=== PATIENT | female | born 2000 | race Caucasian/White ===

== ENCOUNTER 2020-10-18 09:52 | Emergency (ER) | payer MEDICAID ==
[~2020-10-18] VITALS: Ht 152.4 cm; Wt 71.5 kg
[2020-10-18] MEDS ORDERED: LORazepam 2 mg/ml vial IM ONE (11:05)
[2020-10-18 11:37] LABS: BASOPHILS % (AUTO) 0.3 % (0-1); EOSINOPHILS % (AUTO) 0 % (0-6); HEMATOCRIT 44.6 % (35.0-45.0); HEMOGLOBIN 15.2 g/dl (12.0-16.0); LYMPHOCYTES % (AUTO) 12.3 % (21-51); MEAN CORPUSCULAR HEMOGLOBIN 31.2 PG (27.0-31.0); MEAN CORPUSCULAR HGB CONC 34.1 g/dL (33.0-36.5); MEAN CORPUSCULAR VOLUME 91.5 FL (78-98); MEAN PLATELET VOLUME 6.9 FL (7.4-10.4); MONOCYTES # (AUTO) 0.4 X10'3 (0-0.9); MONOCYTES % (AUTO) 4.9 % (2-12); NEUTROPHILS # (AUTO) 6.6 X10'3 (1.8-7.7); NEUTROPHILS % (AUTO) 82.5 % (42-75); PLATELET COUNT 304 X10'3 (140-440); RED BLOOD COUNT 4.87 X10'6 (4.20-5.60); RED CELL DISTRIBUTION WIDTH 12.5 % (11.5-14.5); WHITE BLOOD COUNT 8.1 X10'3 (4.5-11.0)
[2020-10-18 11:43] LABS: CLARITY,URINE CLOUDY (Clear); COLOR,URINE YELLOW (Yellow); GLUCOSE, URINE NEGATIVE (Neg); KETONES,URINE >=80 mg/dl (Neg); LEUKOCYTE ESTERASE ,URINE TRACE (Neg); NITRITES, URINE NEGATIVE (Neg); OCCULT BLOOD,URINE NEGATIVE (Neg); PROTEIN,URINE 30 mg/dl (Neg); URINE HCG NEGATIVE (NEG)
[2020-10-18 11:49] LABS: URINE AMPHETAMINE SCREEN NEGATIVE (Neg); URINE BARBITUATE SCREEN NEGATIVE (Neg); URINE BENZODIAZEPINES SCREEN POSITIVE (Neg); URINE CANNABINOID SCREEN POSITIVE (Neg); URINE COCAINE SCREEN NEGATIVE (Neg); URINE METHADONE SCREEN NEGATIVE (Neg); URINE OPIATE SCREEN NEGATIVE (Neg); URINE PHENCYCLIDINE SCREEN NEGATIVE (Neg)
[2020-10-18 11:51] LABS: ALANINE AMINOTRANSFERASE 29 U/L (12-78); ALBUMIN 4.8 G/DL (3.4-5.0); ALBUMIN/GLOBULIN RATIO 1.3 (1.1-1.5); ALKALINE PHOSPHATASE 63 IU/L (46-116); ANION GAP 13 (8-16); ASPARTATE AMINO TRANSFERASE 25 U/L (10-37); BILIRUBIN,TOTAL 0.6 MG/DL (0.1-1.0); BLOOD UREA NITROGEN 8 MG/DL (7-18); BUN/CREATININE RATIO 11.4 (6.6-38.0); CALCIUM 9.6 MG/DL (8.5-10.1); CHLORIDE 100 MMOL/L (99-107); GLUCOSE 116 MG/DL (70-104); POTASSIUM 3.2 MMOL/L (3.5-5.1); SODIUM 138 MMOL/L (135-145); TOTAL CARBON DIOXIDE 24.7 MMOL/L (24-32); TOTAL PROTEIN 8.5 G/DL (6.4-8.2); eGFR > 90 ML/MIN
[2020-10-18 11:51] LABS: UA COLLECTION TYPE CLN CATCH MIDSTREAM
[2020-10-18 11:52] LABS: BACTERIA,URINE 2+ /HPF (Neg); MUCUS STRANDS MANY /LPF (Neg); RBC,URINE 0-2 /HPF (0-2); SQUAMOUS EPITHELIAL CELL,UR MANY /LPF (FEW); WBC,URINE 0-4 /HPF (0-4)
[2020-10-18 12:01] LABS: ACETAMINOPHEN < 2.0 UG/ML (10-30); ETHANOL < 0.010 GM/DL (0.0-0.010)
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
--- NOTE | 2020-10-18 13:49 | NUR ---
FAXED [facility]
--- NOTE | 2020-10-18 14:18 | NUR ---
breaking primary rn, pt is up to bathroom, will continue to monitor
--- NOTE | 2020-10-18 15:22 | NUR ---
pt is sitting in her bed reading. pt is apolegetic for "stressing us out." pt has no needs at this time
--- NOTE | 2020-10-18 16:54 | NUR ---
pt is resting in bed quietly. pt has been evaluated by [facility] and waiting to see if a [facility] hold will be placed.
[2020-10-18] MEDS ORDERED: SERT25TA PO (19:19)
[2020-10-18] MEDS ORDERED: OMEP20TA23 PO (19:19)
--- NOTE | 2020-10-18 19:25 | NUR ---
One to one with the patient who was fearful and tearful. She was asked if she was hearing voices and she replied, "I would say its more of delusions making me thing people are out to get me" She asked if she was asked to wearing greens scrubs because she was being charged with something and she was reassured that was not the case. She tearfully stated, "Everybody is mad at me. I feel like I deserve to be here until I " When asked why she felt that way she stated that she had not paid off her debit card off on time. She stated that she feels very sad and disappointed. She reports suicidal thoughts "pop in and out" of her mind. She is disorganized and she had difficulty completing making a telephone call without help.
--- NOTE | 2020-10-18 20:31 | NUR ---
The patient is resting on her bed.
--- NOTE | 2020-10-18 22:21 | NUR ---
The patient appears to be sleeping
--- NOTE | 2020-10-18 23:40 | NUR ---
The patient awakened and stated she could not stop shaking her legs but a short time later with distraction her legs stopped shaking. She quickly became increasingly distressed and agitated. She talked nonstop very rapidly for approximately 30 minutes. Her speech was very disorganized, paranoid, delusional and had a flight of ideas. She made many references to the oseguera viris and Trump and that she was not the cause of oseguera viris. She also makes many statements about being "dehumanized" She is refusing medications. She has poor insight.
--- NOTE | 2020-10-19 00:06 | NUR ---
The patient states that she is here because she is withdrawing from all of the medications that she was falsely placed on.
--- NOTE | 2020-10-19 01:01 | NUR ---
The patient remains awake and periodically makes delusional statements. She was again offered medications but she is refusing. She is accepting redirection.
--- NOTE | 2020-10-19 02:50 | NUR ---
The patient appears to be sleeping
--- NOTE | 2020-10-19 04:42 | NUR ---
The patient appears to be asleep
[2020-10-19] MEDS ORDERED: acetaminophen 325mg tablet PO PRN (07:10)
[2020-10-19] MEDS ORDERED: potassium Cl 20 mEq SR tablet PO STA (07:10)
[2020-10-19] MEDS: pantoprazole 40mg Tablet.DR PO SCH (07:20)
[2020-10-19] MEDS: sertraline 25mg tablet PO SCH (07:20)
[2020-10-19] MEDS: LORazepam 1 MG tablet PO PRN ×2 (07:20→15:12)
--- NOTE | 2020-10-19 12:57 | NUR ---
Patient eating lunch tray with no assistance.
--- NOTE | 2020-10-19 14:25 | NUR ---
SPOKE TO DR GILMAN REGARDING REFERRAL TO [facility]. SPOKE WITH [facility] EXT [id number]
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
[2020-10-19] MEDS ORDERED: olanzapine 10mg tablet PO SCH (15:00)
[2020-10-19] MEDS: OLANZAPINE 5 MG TABLET PO SCH (15:12)
--- NOTE | 2020-10-19 18:25 | NUR ---
Patient appears to be sleeping soundly after receiving medications earlier in the evening.
--- NOTE | 2020-10-19 21:11 | NUR ---
Pt awake C/O stomach ache and leg pain but refusing tylenol. No S/S of distress, continue to monitor.
--- NOTE | 2020-10-19 22:03 | NUR ---
Pt sits ups in bed and makes random requests...HIV testing, flu shot, "scan" of her stomach, no distress noted.
--- NOTE | 2020-10-20 00:06 | NUR ---
Pt sleeping comfortably, no distress noted, will continue to monitor.
--- NOTE | 2020-10-20 02:05 | NUR ---
pt sleeping comfortably, no distress, will continue to monitor.
--- NOTE | 2020-10-20 04:32 | NUR ---
Pt sleeping comfortable, no s/s of distress, will monitor pt.
--- NOTE | 2020-10-20 05:42 | NUR ---
Pt continues to c/o upper abd pain, MD aware of increased HR, increased temp vitals from this am. Will continue to monitor.
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
--- NOTE | 2020-10-20 07:39 | NUR ---
Morning labs drawn by this RN. Pt tolerated well and denies any needs at this time.
[2020-10-20 07:56] LABS: ALBUMIN 3.9 G/DL (3.4-5.0); ANION GAP 8 (8-16); BLOOD UREA NITROGEN 11 MG/DL (7-18); BUN/CREATININE RATIO 16.7 (6.6-38.0); CHLORIDE 104 MMOL/L (99-107); CREATININE 0.66 MG/DL (0.40-0.90); GLUCOSE 78 MG/DL (70-104); POTASSIUM 3.9 MMOL/L (3.5-5.1); SODIUM 142 MMOL/L (135-145); TOTAL CARBON DIOXIDE 29.9 MMOL/L (24-32); eGFR > 90 ML/MIN
[2020-10-20 07:57] LABS: BASOPHILS % (AUTO) 0.9 % (0-1); EOSINOPHILS % (AUTO) 0.8 % (0-6); HEMATOCRIT 43.7 % (35.0-45.0); HEMOGLOBIN 14.9 g/dl (12.0-16.0); LYMPHOCYTES # (AUTO) 1.7 X10'3 (1.1-4.8); LYMPHOCYTES % (AUTO) 35.2 % (21-51); MEAN CORPUSCULAR HEMOGLOBIN 31.4 PG (27.0-31.0); MEAN CORPUSCULAR VOLUME 92.3 FL (78-98); MEAN PLATELET VOLUME 7.1 FL (7.4-10.4); MONOCYTES # (AUTO) 0.6 X10'3 (0-0.9); MONOCYTES % (AUTO) 11.3 % (2-12); NEUTROPHILS # (AUTO) 2.6 X10'3 (1.8-7.7); NEUTROPHILS % (AUTO) 51.8 % (42-75); PLATELET COUNT 247 X10'3 (140-440); RED BLOOD COUNT 4.73 X10'6 (4.20-5.60); RED CELL DISTRIBUTION WIDTH 12.7 % (11.5-14.5)
[2020-10-20] MEDS: OLANZAPINE 5 MG TABLET PO SCH ×2 (08:14→20:10)
[2020-10-20] MEDS: pantoprazole 40mg Tablet.DR PO SCH (08:15)
[2020-10-20] MEDS: sertraline 25mg tablet PO SCH (08:15)
--- NOTE | 2020-10-20 08:44 | NUR ---
Pt has made a few trips to the restroom. Pt concerned because she isn't able to poop anymore. Let pt know that it is okay as her body may be "cleaned out" for right now.
--- NOTE | 2020-10-20 09:30 | NUR ---
Pt resting quietly in her bed with her eyes closed. Respirations unlabored. NAD
--- NOTE | 2020-10-20 10:30 | NUR ---
Pt fixated on her bodily functions. Pt on her way to the restroom stated, "I don't know why, but I am having to pee this morning." Let pt know that her urine did not show a UTI.
--- NOTE | 2020-10-20 11:35 | NUR ---
Pt resting in bed. Respirations unlabored. NAD
--- NOTE | 2020-10-20 12:53 | NUR ---
Pt sitting up in bed eating lunch. Pt denies any needs at this time.
--- NOTE | 2020-10-20 12:55 | NUR ---
Pt's foster mother is Terese and she can be reached at [phone].
--- NOTE | 2020-10-20 13:29 | NUR ---
Pt ambulated to the restroom and back to bed. Pt denies any needs at this time.
--- NOTE | 2020-10-20 14:27 | NUR ---
Pt sleeping on back in bed. Respirations unlabored. NAD
--- NOTE | 2020-10-20 15:22 | NUR ---
pt up to restroom 3 times in the last 15 minutes. States she requested an ultrasound and is having abdominal pain, throat pain, and is constipated. Requesting to be seen by a doctor. Reassured pt. that we are monitoring her medically. pt. appeared to be reassured and returned to her bed.
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
--- NOTE | 2020-10-20 16:15 | NUR ---
[facility] for the pt.
--- NOTE | 2020-10-20 16:23 | NUR ---
Leonor called from [facility]. They are holding a bed for the pt pending a negative COVID and faxed updated vital signs/labs. They will call back for a [id number] report. Also gave her [facility]'s phone number to call and arrange transport of pt.
[2020-10-20] MEDS: LORazepam 1 MG tablet PO PRN (17:08)
--- NOTE | 2020-10-20 17:19 | NUR ---
Pt agreed to take an Ativan pill to help her relax. Explained to her that her BP is high because she is not able to relax. Pt verbalized understanding.
--- NOTE | 2020-10-20 17:55 | NUR ---
Refaxed pt's vitals and lab results with negative COVID to [facility].
--- NOTE | 2020-10-20 17:57 | NUR ---
Pt sitting on side of bed eating supper.
--- NOTE | 2020-10-20 18:25 | NUR ---
[facility] called back and said that the pt has insurance from [facility], so they have to talk to that [facility] to [facility] transport and inpatient. They will revisit tomorrow.
--- NOTE | 2020-10-20 19:36 | NUR ---
Patient walks up to nursing station. She tells this expert medical writer her heart is racing. No radial pulses present. Bracheal pulses are present at 150. Patient taken to her bedside. Orthostatic vital signs are being taken.
--- NOTE | 2020-10-20 20:30 | NUR ---
Patient is labile and demanding. He received ice water at his requests along with coloring material. He is redirectable.
--- NOTE | 2020-10-20 21:08 | NUR ---
Patient is interviewed by [facility]. We are preparing him for discharge from ED so he can be admitted to [facility].
--- NOTE | 2020-10-21 00:32 | NUR ---
Patient is awake, she has ambulated to bathroom and back. Normal gait. Patient complains of problems sleeping, anxiety is present too. Dr. Ríos advised. Orders received for Benadryl 50 mg PO. This will be given along with Ativan 1 mg PO.
[2020-10-21] MEDS ORDERED: diphenhydrAMINE 25mg capsule PO ONE (00:35)
--- NOTE | 2020-10-21 01:06 | NUR ---
Patient is awake, mid fowlers position in bed. In view from nurses station.
[2020-10-21] MEDS: LORazepam 1 MG tablet PO PRN ×2 (01:28→15:58)
--- NOTE | 2020-10-21 02:37 | NUR ---
Patient is sleeping quietly on her right side, bed in low fowlers position.
--- NOTE | 2020-10-21 03:30 | NUR ---
Patient is sleeping quietly, low fowlers position in bed.
--- NOTE | 2020-10-21 04:12 | NUR ---
Patient is sleeping quietly on her right side. Bed is in mid fowlers position. No distress.
--- NOTE | 2020-10-21 05:50 | NUR ---
Patient sleeping quietly, in view from nurses station.
[2020-10-21] MEDS ORDERED: pantoprazole 40mg Tablet.DR PO ONE (06:00)
[2020-10-21] MEDS ORDERED: famotidine 20mg tablet PO ONE (06:00)
--- NOTE | 2020-10-21 06:02 | NUR ---
This patient had a rapid pulse rate and was sweating when awoken for morning vital signs. Patient was reported to be shivering and had the chills. Patient temp was within normal limits, it was taken oraly. This adjusto writer operator rechecked patients pulse, it was [address] Knowles was advised. Per MD recheck vitals around 0700 and report to him. This will be handed over in report to the oncoming day RN.
--- NOTE | 2020-10-21 07:00 | NUR ---
Pt remains asleep in bed. Pt peaceful without signs of distress.
--- NOTE | 2020-10-21 08:03 | NUR ---
meds due at 0600 have still not been given as pt remains asleep without complaints. Per night RN gave direction to not wake pt up to give.
[2020-10-21] MEDS: OLANZAPINE 5 MG TABLET PO SCH ×2 (08:41→20:15)
[2020-10-21] MEDS: sertraline 25mg tablet PO SCH (08:41)
[2020-10-21] MEDS: pantoprazole 40mg Tablet.DR PO SCH (08:41)
--- NOTE | 2020-10-21 09:00 | NUR ---
Pt up x 2 to the bathroom with small loose/runny stools. Encourage fluid intake. Pt compliant with medications.
--- NOTE | 2020-10-21 11:00 | NUR ---
Pt continues to make trips to the bathroom; though, she is not c/o loose bowels, but she has multiple other complaints that sometimes seem delusional with paranoia in nature. Pt currently resting in bed.
--- NOTE | 2020-10-21 13:00 | NUR ---
Pt continues to make trips to the bathroom. No complaints. Sitting in bed eating lunch.
--- NOTE | 2020-10-21 15:00 | NUR ---
Pt laying in bed, quiet, without complaints.
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
--- NOTE | 2020-10-21 15:35 | NUR ---
Pt attempted AWOL and was able to be verbally coaxed back to the unit. Pt seems triggered by male staff and refuses ativan by male nurse. Female staff called to assist. Female staff came and were unable to calm pt and pt would not take medication. [facility] female patient scheduler, now talking with pt.
--- NOTE | 2020-10-21 17:00 | NUR ---
Pt eventually took the ativan and is now reading a book peacefully.
--- NOTE | 2020-10-21 18:15 | NUR ---
Patient has been to the nurses station several times since my arrival to ask about her brother being in the ER. Pt is very tearful and unable to be calmed. Pt now wants to try to call her mom insisting that she has to know what is going on with her family because she does care about them no matter what the news says
--- NOTE | 2020-10-21 18:45 | NUR ---
Patient was unable to complete the call to her mom, continues to be tearful and upset insisting something is wrong with her brother.
--- NOTE | 2020-10-21 19:11 | NUR ---
Patient's (mom) BOB WISE and (dad) Nish Wise
--- NOTE | 2020-10-21 19:15 | NUR ---
With the help of staff patient was able to reach her mom via telephone. Once on the line with her mom pt asked "if the family was ok, and is everyone alive". Pt also overheard making statements like "oh I'm sorry about whatever you have heard on the news about me, none of it is true". Pt remained calm while on the phone to her mom and after she hung up patient appeared to have calmed down from her earlier state of tearfulness and returned back to bed without issue
--- NOTE | 2020-10-21 19:43 | NUR ---
Patient is now sitting up in her bed reading a book and appears much calmer
--- NOTE | 2020-10-21 20:20 | NUR ---
Pt is now very cooperative with staff and pleasant. When patient was given her PM medicaion she stated she was very sorry for how she had acted earlier and knew that she shouldn't have been acting like that. Pt also stated that she knows she says sorry a lot but that she feels like she can't help it and has to apologize. Pt was reassured that everything was okay. Pt now lying on her side and appears to be resting comfortably
--- NOTE | 2020-10-21 22:00 | NUR ---
Patient remains in her bed and appears to be resting comfortably. No s/s of distress noted
--- NOTE | 2020-10-21 23:17 | NUR ---
Patient remains in her bed and appears to be resting comfortably. No s/s of distress noted
--- NOTE | 2020-10-22 00:39 | NUR ---
Pt woke up and said she felt cold because she was wet from sweating. Pt's scrubs and sheets were damp. Pt was given a fresh set of scrubs to change and all bedding was changed.
--- NOTE | 2020-10-22 01:28 | NUR ---
Pt. awake, alert and constantly in and out of bed. She is speaking obsessively regarding incidences that occured earlier, apologizing for her behavior. She is also speaking in tangent, from hx. of marijuana use, medical hx. and dietary habits. Pt. redirected and currently resting in bed quietly. VS being taken by tech.
--- NOTE | 2020-10-22 02:53 | NUR ---
Pt was walking to the restroom pt stopped at RN station and began asking and expressing concern about her sister. Pt was redirected after a couple of minutes and finished ambulating to the restroom. When pt came out of the restroom pt came back to RN station and stated "she knows they were here in the hospital" then pt stated "they are hoarding my grandma away even though she is very ill". Pt then began talking about her nephew again asking if he was ok. Pt eventually returned to bed but was becoming tearful. Pt is currently sitting up in her bed glancing at a book.
--- NOTE | 2020-10-22 03:53 | NUR ---
Pt sitting up in bed with no s/s of distress noted. Pt called RN over and asked "what time am I being sent to the 5150". Informed patient that for right now she isn't being transferred just yet. Pt then asked "do you have a Crystal here she's my sister". Pt was redirected and she went back to sitting quietly on her bed
--- NOTE | 2020-10-22 04:58 | NUR ---
Pt transferred to ER room 10 via bed. No s/s of distress noted at this time
[2020-10-22] MEDS: pantoprazole 40mg Tablet.DR PO SCH (08:11)
[2020-10-22] MEDS: OLANZAPINE 5 MG TABLET PO SCH ×2 (08:11→21:13)
[2020-10-22] MEDS: sertraline 25mg tablet PO SCH (08:11)
--- NOTE | 2020-10-22 10:23 | NUR ---
PT IS VERY ANXIOUS, RAPID SPEECH, TALKING ABOUT WHY SHE CAME HERE AND SHE NEEDS HELP. REFERRS TO HER FAMILY FREQUENTLY AND ALL THEIR ISSUES/PROBLEMS AND SHE DOESNT WANT TO GO BACK THERE. NOTIFY MD AND RECEIVE ORDER FOR ATIVAN PO.
[2020-10-22] MEDS ORDERED: LORazepam 1 MG tablet PO ONE (10:25)
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
--- NOTE | 2020-10-22 13:51 | NUR ---
PT GIVEN LUNCH TRAY.
--- NOTE | 2020-10-22 14:08 | NUR ---
PT SLEEPING AND NOT EATING OFF LUNCH TRAY.
--- NOTE | 2020-10-22 14:44 | NUR ---
PT'S BIOLOGIC MOTHER CALLS FOR UPDATE.SHE HAD BROUGHT HER IN TO THE ER. THE PT HADNT BEEN SLEEPING AND WAS TALKING NONSTOP.
[2020-10-22] MEDS ORDERED: mag hydrox/Alum hydrox/simeth 30ml oral suspension PO ONE (17:45)
[2020-10-22] MEDS: LORazepam 1 MG tablet PO PRN (17:55)
--- NOTE | 2020-10-22 17:57 | NUR ---
PT IS TEARFUL, TALKING ABOUT HER DOG AND HOW SHE MISSES HIM. ADMIN ATIVAN FOR ANXIETY.
--- NOTE | 2020-10-22 17:59 | NUR ---
DR MENESES AWARE OF PT'S C/O ABD PAIN. MALOX IS ORDERED BY PT MAY NOT WANT TO TAKE IT. SHE CLAIMS SHE ALREADY TOOK IT AND IT DIDNT HELP WHICH ISNT TRUE.
--- NOTE | 2020-10-22 18:30 | NUR ---
Patient refused Maalox, only wants to see her "dog"?
--- NOTE | 2020-10-22 18:58 | NUR ---
Assumed care of patient that is on the side of her bed eating dinner. No distress noted.
--- NOTE | 2020-10-22 19:23 | NUR ---
Patient requesting toothpaste and toothbrush. "I have a bad root canal from not brushing my teeth, so I need to brush my teeth." She was provided a toothbrush and toothpaste.
[2020-10-22] MEDS ORDERED: LORazepam 2 mg/ml vial IM ONE (20:55)
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
--- NOTE | 2020-10-22 23:30 | NUR ---
The patient appears to be asleep in supine position. Breathing is unlabored. No s/s of distress.
--- NOTE | 2020-10-23 01:20 | NUR ---
The patient continues to sleep in supine position. No distress.
--- NOTE | 2020-10-23 02:48 | NUR ---
Patient appears to be sleeping on his right side. No s/s of distress noted.
--- NOTE | 2020-10-23 03:40 | NUR ---
Pt sleeping on left side, RR 16, no signs of distress. Assumed care from [employer]
--- NOTE | 2020-10-23 04:46 | NUR ---
pt resting in bed, appears to be sleeping. [id number]
--- NOTE | 2020-10-23 06:00 | NUR ---
When pt woke for vitals, notably diaphoretic and pulse [address] BP elevated[address] Hanks advised of pt condition. No orders at this time.
--- NOTE | 2020-10-23 06:35 | NUR ---
Spoke with Dr. Castillo regarding pt HR of 110-130 BPM. Pt reported she had been with diarrhea all day yesterday and intermittently for approx 1 week. Pt reports generalized upper abd discomfort, denies N/V. Pt to receive fluid per MD Castillo.
[2020-10-23] MEDS ORDERED: normal saline 1000ML IV soln IVB ONE (07:10)
[2020-10-23] MEDS: sertraline 25mg tablet PO SCH (08:10)
[2020-10-23] MEDS: pantoprazole 40mg Tablet.DR PO SCH (08:11)
[2020-10-23] MEDS: LORazepam 1 MG tablet PO PRN (08:11)
[2020-10-23] MEDS: OLANZAPINE 5 MG TABLET PO SCH ×2 (08:11→19:12)
--- NOTE | 2020-10-23 11:00 | NUR ---
PT REMAINS CALM AND COOPERATIVE AND IS CURRENTLY RESTING WITH EYES CLOSED.
--- NOTE | 2020-10-23 14:05 | NUR ---
PT HR CONTINUES TO TREND DOWN AND CURRENTLY WNL
--- NOTE | 2020-10-23 14:30 | NUR ---
Pt was up, ambulated to restroom and now back in room eating lunch tray.
--- NOTE | 2020-10-23 18:40 | NUR ---
pt is tearful,talking about her dog,mistreatingher dog, and how her mom took the dog and had it put to sleep
[2020-10-23] MEDS: normal saline 1000ml 1,000 ML IV SCH (19:30)
--- NOTE | 2020-10-23 19:30 | NUR ---
pt tearful, cooperative with medications, allover the palce with what she is upset about
--- NOTE | 2020-10-23 20:39 | NUR ---
pt supine in bed, no needs at this time
--- NOTE | 2020-10-23 21:30 | NUR ---
PT IS ASLEEP,REGULAR BREATHING PRESENT,NO NEEDS AT THIS TIME
--- NOTE | 2020-10-23 22:30 | NUR ---
PT IS ASLEEP, NO S/S OF AGITATION
--- NOTE | 2020-10-23 23:30 | NUR ---
pt is asleep, no needs at this time
--- NOTE | 2020-10-24 01:30 | NUR ---
pt is asleep, no needs at this time
[2020-10-24] MEDS: normal saline 1000ml 1,000 ML IV SCH ×2 (02:45→12:45)
--- NOTE | 2020-10-24 02:49 | NUR ---
pt is asleep, regular breathing present
--- NOTE | 2020-10-24 03:32 | NUR ---
pt is asleep. no needs at this time
--- NOTE | 2020-10-24 04:44 | NUR ---
PT IS ASLEEP, REGULAR BREATHING PRESENT, NO NEEDS AT THIS TIME
[2020-10-24 08:08] LABS: BASOPHILS # (AUTO) 0.1 X10'3 (0-0.2); EOSINOPHILS # (AUTO) 0.1 X10'3 (0-0.9); EOSINOPHILS % (AUTO) 2.9 % (0-6); HEMOGLOBIN 14.3 g/dl (12.0-16.0); LYMPHOCYTES # (AUTO) 1.9 X10'3 (1.1-4.8); LYMPHOCYTES % (AUTO) 37.3 % (21-51); MEAN CORPUSCULAR HGB CONC 33.4 g/dL (33.0-36.5); MEAN CORPUSCULAR VOLUME 92.8 FL (78-98); MEAN PLATELET VOLUME 6.9 FL (7.4-10.4); MONOCYTES # (AUTO) 0.5 X10'3 (0-0.9); MONOCYTES % (AUTO) 9.3 % (2-12); NEUTROPHILS # (AUTO) 2.5 X10'3 (1.8-7.7); NEUTROPHILS % (AUTO) 49.5 % (42-75); PLATELET COUNT 244 X10'3 (140-440); RED BLOOD COUNT 4.63 X10'6 (4.20-5.60); RED CELL DISTRIBUTION WIDTH 12.5 % (11.5-14.5); WHITE BLOOD COUNT 5.1 X10'3 (4.5-11.0)
[2020-10-24 08:22] LABS: ALANINE AMINOTRANSFERASE 19 U/L (12-78); ALBUMIN 3.8 G/DL (3.4-5.0); ALBUMIN/GLOBULIN RATIO 1.1 (1.1-1.5); ALKALINE PHOSPHATASE 49 IU/L (46-116); ANION GAP 9 (8-16); ASPARTATE AMINO TRANSFERASE 13 U/L (10-37); BILIRUBIN,TOTAL 0.4 MG/DL (0.1-1.0); BLOOD UREA NITROGEN 7 MG/DL (7-18); BUN/CREATININE RATIO 12.7 (6.6-38.0); CALCIUM 9.1 MG/DL (8.5-10.1); CHLORIDE 106 MMOL/L (99-107); CREATININE 0.55 MG/DL (0.40-0.90); GLUCOSE 91 MG/DL (70-104); POTASSIUM 3.6 MMOL/L (3.5-5.1); SODIUM 141 MMOL/L (135-145); TOTAL PROTEIN 7.2 G/DL (6.4-8.2); eGFR > 90 ML/MIN
[2020-10-24] MEDS: sertraline 25mg tablet PO SCH (08:34)
[2020-10-24] MEDS: OLANZAPINE 5 MG TABLET PO SCH ×2 (08:34→21:01)
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
[2020-10-24] MEDS: pantoprazole 40mg Tablet.DR PO SCH (08:43)
[2020-10-24] MEDS: LORazepam 1 MG tablet PO PRN ×2 (09:02→21:06)
[2020-10-24] MEDS ORDERED: metoclopramide 5 mg/ml inj IV ONE (09:40)
--- NOTE | 2020-10-24 10:07 | NUR ---
PT HAVING LOUD OUTBURST, CRYING TALKING ABOUT HER DOG. PT SINGING TO LET HER DOG HEAR HER.
[2020-10-24] MEDS ORDERED: LORazepam 2 mg/ml vial IM ONE (11:20)
[2020-10-24] MEDS ORDERED: diphenhydrAMINE 50 mg/ml inj IM ONE (11:20)
[2020-10-24] MEDS ORDERED: OLANZapine **IM** 10 mg inj. IM ONE (11:20)
--- NOTE | 2020-10-24 11:23 | NUR ---
PT PULLED OUT HER IV AND TRYING TO LEAVE ER. REDIRECTED BACK TO ROOM AND INFORMED DR. GORE. PLEASE SEE NEW ORDERS.
--- NOTE | 2020-10-24 11:41 | NUR ---
DR. GORE SAYS OK TO LEAVE IV OUT.
--- NOTE | 2020-10-24 12:14 | NUR ---
PT QUIETLY RESTING,
--- NOTE | 2020-10-24 14:50 | NUR ---
PT AWAKE EATING LUNCH WITH GOOD APPETITE.
--- NOTE | 2020-10-24 19:37 | NUR ---
Pt repeatedly approaching nursing station accusing the nurses of stating things that were not said. Pt is has been observed to be increasingly agitated with parnoia. Pt was redirected back into bed. Nurse also told pt she may be hearing voices, which pt denies.
--- NOTE | 2020-10-24 19:48 | NUR ---
Pt apologizing for being rude and also independently ambulated to bathroom. Pt was also transfered from bed 27 to bed 22 in the overflow section.
[2020-10-24] MEDS: propranolol 10mg tablet PO SCH (21:01)
[2020-10-25] MEDS ORDERED: ibuprofen tablet 400 MG TABLET PO ONE (07:50)
[2020-10-25] MEDS: OLANZAPINE 5 MG TABLET PO SCH ×2 (07:56→20:31)
[2020-10-25] MEDS: pantoprazole 40mg Tablet.DR PO SCH (07:56)
[2020-10-25] MEDS: propranolol 10mg tablet PO SCH ×3 (07:56→20:31)
[2020-10-25] MEDS: sertraline 25mg tablet PO SCH (07:57)
--- NOTE | 2020-10-25 09:20 | NUR ---
UP WALKING AROUND ON UNIT. EASILY AGITATED. USING BATHROOM FREQUENTLY AND HAVING FREQUENT VAGUE COMPLAINTS.
[2020-10-25] MEDS ORDERED: MIDAZolam 5mg/ml 2ml vial IM ONE (09:35)
--- NOTE | 2020-10-25 09:35 | NUR ---
PATIENT IS AGITATED AND ARGUING WITH STAFF. WALKED OFF UNIT AND IS IN THE BATHROOM ON THE FAST TRACK UNIT. SECURITY AND STAFF ARE PRESENT AND TALKING WITH PATIENT. DR. GILMAN NOTIFIED AND WILL PUT IN ORDER FOR MED TO HELP PATIENT CALM DOWN. PATIENT WALKED BACK TO OVERFLOW UNIT AND IS STANDING BY HER BED WITH SECURITY GUARDS X 2 PRESENT.
[2020-10-25] MEDS: LORazepam 1 MG tablet PO PRN (15:20)
--- NOTE | 2020-10-26 06:34 | NUR ---
RCVD report from Gita RN, pt moved from room 9 in main ED to room 22 in overflow by staff, no needs at this time
[2020-10-26 07:00] VITALS: BP 119/84
[2020-10-26] MEDS: OLANZAPINE 5 MG TABLET PO SCH (07:11)
[2020-10-26] MEDS: sertraline 25mg tablet PO SCH (07:11)
[2020-10-26] MEDS: pantoprazole 40mg Tablet.DR PO SCH (07:11)
[2020-10-26] MEDS: LORazepam 1 MG tablet PO PRN (07:11)
[2020-10-26] MEDS: propranolol 10mg tablet PO SCH (07:11)
--- NOTE | 2020-10-26 07:30 | NUR ---
pt was starting to get agitated, back and forth to nurses station appologizing to me, gave AM meds and PRN ativan
--- NOTE | 2020-10-26 08:31 | NUR ---
pt is asleep, regular breathing present. no needs at this time
--- NOTE | 2020-10-26 09:30 | NUR ---
PT REQUESTED COLORING BOOKS AND READING MATERIAL, SHE WAS GIVEN THEM, CALM, NO OTHER NEEDS AT THIS TIME
--- NOTE | 2020-10-26 10:30 | NUR ---
PT HAS BEEN COOPERATIVE AND CALM ALL MORNING, NO AGITATION, QUIET AND APOLOGETIC
--- NOTE | 2020-10-26 11:19 | NUR ---
PT WAS ACCEPTED AT [facility],SPOKE TO TAHIRA
--- NOTE | 2020-10-26 11:20 | NUR ---
PT SITTING ON HER BED, EATING CRACKERS, SPEAKING WITH DR LEE
--- NOTE | 2020-10-26 11:58 | NUR ---
PATIENT TO [facility] WITH TECH AND MEDICAL TRANSCRIPTION
[2020-10-26] MEDS ORDERED: PROP10TA10 PO (12:41)
[2020-10-26] MEDS ORDERED: OLAN5TAB3 PO (12:41)
== END 2020-10-26 12:01 ==
LOC: ER 09:52
DX: F23 Brief psychotic disorder (principal); R45.851 Suicidal ideations; R10.13 Epigastric pain; Z20.822 Contact with and (suspected) exposure to COVID-19; F12.90 Cannabis use, unspecified, uncomplicated; Z79.899 Other long term (current) drug therapy
CPT/HCPCS: 36415; 80048; 80053; 80305; 80320; 80329; 81001; 81025; 84443; 85025; 87426; 87635; 96361; 96372; 96374; 99285; C9803; J2060; 96360

== ENCOUNTER 2020-10-26 11:56 | Inpatient (IN) | payer MEDICAID ==
[~2020-10-26] VITALS: Ht 154.9 cm; Wt 79.1 kg
[~2020-10-26 11:56] MED LIST: OMEP20TA23 PO; SERT25TA PO
[2020-10-26] MEDS ORDERED: magnesium hydroxide 30ml (MOM) UD suspension PO PRN (12:05)
[2020-10-26] MEDS ORDERED: loperamide 2mg capsule PO PRN (12:05)
[2020-10-26] MEDS ORDERED: acetaminophen 325mg tablet PO PRN ×2 (12:05)
[2020-10-26] MEDS ORDERED: mag hydrox/Alum hydrox/simeth 30ml oral suspension PO PRN (12:05)
[2020-10-26] MEDS ORDERED: OLAN5TAB3 PO (12:41)
[2020-10-26] MEDS ORDERED: PROP10TA10 PO (12:41)
[2020-10-26 13:00] VITALS: BP 128/86
[2020-10-26] MEDS: propranolol 10mg tablet PO SCH ×2 (13:58→21:34)
--- NOTE | 2020-10-26 14:40 | NUR ---
Pt admitted to [facility] from ER overflow where she has been since 2/3 awaiting placement. Pt came to ER c/o abd pain, but once there, exhibitted paranoid/delusional behavior and was evaluated and put on a 5150 for grave disability and danger to self. Pt stated she wanted to hang herself. Currently, pt denies ever having said that or having those specific thoughts and says she was having thoughts of being better off without specific plans. Pt continues to voice bizarre and paranoid thoughts r/t her mother. Pt states she drinks 2-3 drinks of hard seltzer 2-4 x per week and that she smokes marijuana daily. Pt cooperative with assessment and apologizes to this RN for her bx in the ER on Friday.
--- NOTE | 2020-10-26 19:08 | NUR ---
Patient is ambulatory on the unit. She is angry and accusing staff of telling people that she started covid. Patient was on telephone yelling at her foster mother. This engineering writer spoke with patients foster mother. She requests no more phone calls tonight from her daughter. Per foster mother, "she is delusional and out of control. She can't come home until she is better, she believes since she voted for Trump that she is in trouble, Alvin told her through the television that he is coming to get her." This patient is yelling on the unit. She is accusatory at staff. Patient was offered an Ativan which she refused. The patient was advised by this engineering writer that she would need to calm down and rest in her room, no more yelling. Patient stormed off to her room.
[2020-10-26] MEDS: OLANZAPINE 5 MG TABLET PO SCH (19:24)
[2020-10-26] MEDS: LORazepam 1 MG tablet PO PRN (19:24)
--- NOTE | 2020-10-26 19:26 | NUR ---
Patient took PRN Ativan PO. Night time Zyprexa was also given along with Ativan 1mg PO.
[2020-10-26 20:00] VITALS: BP 135/89
[2020-10-26] MEDS: traZODone 50mg tablet PO PRN (21:35)
--- NOTE | 2020-10-27 03:45 | NUR ---
Nursing Progress Note:Constance Lewis Legal hold:5150 Client on voluntary/involuntary status for GD/DTS Report received from SHIV Oshea with use of SBAR Why are they here:Pt admitted to [facility] from ER overflow where she has been since 2/3 awaiting placement. Pt came to ER c/o abd pain, but once there, exhibitted paranoid/delusional behavior and was evaluated and put on a 5150 for grave disability and danger to self. Pt stated she wanted to hang herself. Currently, pt denies ever having said that or having those specific thoughts and says she was having thoughts of being better off without specific plans. Pt continues to voice bizarre and paranoid thoughts r/t her mother. Pt states she drinks 2-3 drinks of hard seltzer 2-4 x per week and that she smokes marijuana daily. Pt cooperative with assessment and apologizes to this RN for her bx in the ER on Friday. Assessment What has happened this shift: Patient is noted in the hallways, she is hysterical at times, she yells at her mother on the telephone, she yells at staff. Patients behavior is quite disruptive. Patient yells that we (staff) are blaming her for starting covid, patients speech is tangential at times.Patient demands to go home. Patient refuses to take medications. This selling underwriter contacted [facility] to request orders, simotaniously, one of the tech's developed some rapor with this patient and she agreed to take her zyprexa along with ativan. Within approximately 45 minutes patient was much less labile, she apologizes for her previous actions to multiple staff, she then went to her room to rest. Later in evening patients thought process is becoming linear. She is compliant with other meds, including Trazadone. S/I, H/I:Denies. A/VH: Unknown, looked to be responding to internal stimuli after shift change. Sleep: Leo retired to sleep, will tally at 0500. ADL's:WNL Group attendance:New admit, no group on general warehouse worker. Were meds taken:Leo became medication compliant. Any med None noted or observed. Mental Status Exam Appearance:Disheveled. Eye contact:Direct, glaring.. Behavior:Labile, frequent outbursts. Speech:Loud,tangential at times. Mood:Very Angry, yelling, acusatory,irritable. Affect:Irritable, labile. Thought process: Tangential, more linear after taking medications. Thought Content:Delusional. Cognition:Oriented to person and place. Insight:Poor. Judgment:Poor. Interventions PRN's used:Trazadone, Ativan. Therapeutic interventions: 1:1 assessment, establishment of rapport, maintained a safe and therapeutic environment, ensured contract for safety, therapeutic communication, active listening, provided clear and simple instructions, medication administration/education/monitoring, behavior monitoring, and maintained Q 15 minute safety checks. Restraints/seclusion/emergency medication: N/A Justification of Continued Inpatient Treatment: Pt needs medication adjustment and management in a safe and therapeutic environment until stable.
[2020-10-27] MEDS: LORazepam 1 MG tablet PO PRN (05:55)
--- NOTE | 2020-10-27 05:56 | NUR ---
Patient awoke after a loud disturbance on the unit. Patient complains of anxiety. Patient reassured that she is in a safe place. Ativen 1 mg given PO. She then agreed to return to bed and attempt to relax.
[2020-10-27] MEDS: pantoprazole 40mg Tablet.DR PO SCH (07:15)
[2020-10-27 07:16] VITALS: BP 121/81
[2020-10-27] MEDS: sertraline 25mg tablet PO SCH (08:01)
[2020-10-27] MEDS: propranolol 10mg tablet PO SCH ×3 (08:01→20:04)
[2020-10-27] MEDS: OLANZAPINE 5 MG TABLET PO SCH (08:01)
[2020-10-27 08:09] LABS: CHOL/HDL RATIO 3.6 (0.00-4.99); CHOLESTEROL 169 MG/DL (0-200); HDL CHOLESTEROL 47 MG/DL (35-60); LDL CHOLESTEROL 104 MG/DL (50-100); TRIGLYCERIDES 77 MG/DL (20-135)
[2020-10-27 08:11] LABS: HEMOGLOBIN A1C 5.2 % (4.5-6.2)
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
[2020-10-27] MEDS ORDERED: ziprasidone 20mg capsule PO PRN (14:20)
[2020-10-27 20:00] VITALS: BP 133/85
[2020-10-27] MEDS: traZODone 50mg tablet PO PRN (20:04)
[2020-10-27] MEDS: ziprasidone 20mg capsule PO SCH (20:05)
--- NOTE | 2020-10-27 23:32 | NUR ---
Nursing Progress Note Legal hold: 5150 Client on involuntary status for GD/DTS Report received from SHIV Oshea with use of SBAR Why are they here: Pt admitted to [facility] from ER overflow where she has been since 2/3 awaiting placement. Pt came to ER c/o abd pain, but once there, exhibitted paranoid/delusional behavior and was evaluated and put on a 5150 for grave disability and danger to self. Pt stated she wanted to hang herself. Currently, pt denies ever having said that or having those specific thoughts and says she was having thoughts of being better off without specific plans. Pt continues to voice bizarre and paranoid thoughts r/t her mother. Pt states she drinks 2-3 drinks of hard seltzer 2-4 x per week and that she smokes marijuana daily. Pt cooperative with assessment and apologizes to this RN for her bx in the ER on Friday. Assessment What has happened this shift: Patient primarily isolates to her room. Patient ate meals and was medication compliant. Patient apologizes to this comic writer for her previous nights outbursts. The patient presents as linear this shift. She denies S/I or H/I, she denies hallucinations. Patient speaks of wanting to discharge home and live with her biological mother. The patient states she and her foster mother just argue too much. The patient is medication compliant. No outbursts noted this shift. S/I, H/I: Denies. A/VH: Pt denies. Sleep: Sleeping well, will tally at 0500 hours. ADL's: Independent. Group attendance: No group on night shifts. Were Meds taken: Compliant with medications. Any med side effects: None observed or reported. Mental Status Exam Appearance: Clean, dressed in green scrubs with a white mask on. Eye contact: Direct. Behavior: Cooperative. Speech: Quiet, normal rhythm and tone. Mood: Depressed. Affect: Flat. Thought process: Tangential at times, sometimes linear. Thought Content: Paranoid, minimizes. Cognition: A/O x4 Insight: Poor. Judgment: Poor. Interventions PRN's used: Trazadone. Therapeutic interventions: 1:1 assessment, ensured contract for safety, provided therapeutic communication with active listening, medication administration/education/monitoring, behavior monitoring, and maintained Q 15 minute safety checks. Restraints/seclusion/emergency medication: N/A Justification of Continued Inpatient Treatment: Pt needs medication adjustment and management in a safe and therapeutic environment until stable.
[2020-10-28 07:23] VITALS: BP 132/86
[2020-10-28] MEDS: propranolol 10mg tablet PO SCH ×3 (07:36→20:06)
[2020-10-28] MEDS: ziprasidone 20mg capsule PO SCH ×2 (07:36→20:06)
[2020-10-28] MEDS: pantoprazole 40mg Tablet.DR PO SCH (07:36)
[2020-10-28] MEDS: sertraline 25mg tablet PO SCH (07:36)
--- NOTE | 2020-10-28 14:47 | NUR ---
Nursing Progress Note Legal hold: 5150 Client on involuntary status for GD/DTS Report received from Gissel Padilla RN with use of SBAR Why are they here: Pt admitted to [facility] from ER overflow where she has been since 2/3 awaiting placement. Pt came to ER c/o abd pain, but once there, exhibitted paranoid/delusional behavior and was evaluated and put on a 5150 for grave disability and danger to self. Pt stated she wanted to hang herself. Currently, pt denies ever having said that or having those specific thoughts and says she was having thoughts of being better off without specific plans. Pt continues to voice bizarre and paranoid thoughts r/t her mother. Pt states she drinks 2-3 drinks of hard seltzer 2-4 x per week and that she smokes marijuana daily. Pt cooperative with assessment and apologizes to this RN for her bx in the ER on Friday. Assessment What has happened this shift: Again, during AM assessment, pt apologized for behavior when she was in the ER two nights ago. She further reiterated the same story sharing how she called her biological mother a "fraud," and "I should have never said that, because she is not a fraud." Twice pt came to this nurse with her belongings from her room and asked, "what time am I leaving?" She has been present on the unit most of this shift. She is on her second day of starting Geodon. No S/E noted or reported. She is medication compliant and contracted for safety. S/I, H/I: Denies. A/VH: Pt heard talking loudly in her room while alone Sleep: Up during the day ADL's: Independent; showered in AM Group attendance: No AM group Were Meds taken: Compliant with medications Any med side effects: None noted or reported Mental Status Exam Appearance: Clean, dressed in personal clothing Eye contact: Direct Behavior: Cooperative Speech: Rapid, audible Mood: Apologetic; "sorry for my behavior the other night." Affect: Appropriate Thought process: Linear Thought Content: Discharging home to her biological mother's house Cognition: A/O x4 Insight: Poor. Judgment: Poor. Interventions PRN's used: N/A Therapeutic interventions: 1:1 assessment, ensured contract for safety, provided therapeutic communication with active listening, medication administration/education/monitoring, behavior monitoring, and maintained Q 15 minute safety checks. Restraints/seclusion/emergency medication: N/A Justification of Continued Inpatient Treatment: Pt needs medication adjustment and management in a safe and therapeutic environment until stable.
[2020-10-28 20:00] VITALS: BP 128/74
[2020-10-28] MEDS: LORazepam 1 MG tablet PO PRN (20:06)
[2020-10-28] MEDS: traZODone 50mg tablet PO PRN (20:06)
--- NOTE | 2020-10-29 00:31 | NUR ---
Nursing Progress Note Legal hold: 5150 Client on involuntary status for GD/DTS Report received from SHIV Oshea with use of SBAR Why are they here: Pt admitted to [facility] from ER overflow where she has been since 2/3 awaiting placement. Pt came to ER c/o abd pain, but once there, exhibitted paranoid/delusional behavior and was evaluated and put on a 5150 for grave disability and danger to self. Pt stated she wanted to hang herself. Currently, pt denies ever having said that or having those specific thoughts and says she was having thoughts of being better off without specific plans. Pt continues to voice bizarre and paranoid thoughts r/t her mother. Pt states she drinks 2-3 drinks of hard seltzer 2-4 x per week and that she smokes marijuana daily. Pt cooperative with assessment and apologizes to this RN for her bx in the ER on Friday. Assessment What has happened this shift: Patient is noted socializing with peers on a limited basis. She rests quietly in her room. Patient is quiet, she remains quiet and apologetic over being loud and irrational a couple of nights ago. The patient is focused on discharge. S/I, H/I: Denies. A/VH: Pt denies. Sleep: Sleeping well, will tally at 0500 hours. ADL's: Independent. Group attendance: No group on night shifts. Were Meds taken: Compliant with medications. Any med side effects: None observed or reported. Mental Status Exam Appearance: Clean, dressed in green scrubs with a white mask on. Eye contact: Direct. Behavior: Cooperative. Speech: Quiet, normal rhythm and tone. Mood: Depressed. Affect: Flat. Thought process: Tangential at times, sometimes linear. Thought Content: Paranoid, minimizes. Cognition: A/O x4 Insight: Poor. Judgment: Poor. Interventions PRN's used: Trazadone. Therapeutic interventions: 1:1 assessment, ensured contract for safety, provided therapeutic communication with active listening, medication administration/education/monitoring, behavior monitoring, and maintained Q 15 minute safety checks. Restraints/seclusion/emergency medication: N/A Justification of Continued Inpatient Treatment: Pt needs medication adjustment and management in a safe and therapeutic environment until stable.
[2020-10-29] MEDS: propranolol 10mg tablet PO SCH ×2 (07:27→13:11)
[2020-10-29] MEDS: ziprasidone 20mg capsule PO SCH (07:27)
[2020-10-29] MEDS: pantoprazole 40mg Tablet.DR PO SCH (07:27)
[2020-10-29] MEDS: sertraline 25mg tablet PO SCH (07:27)
[2020-10-29 08:00] VITALS: BP 113/77
[2020-10-29] MEDS ORDERED: LORA-268 PO (13:21)
[2020-10-29] MEDS ORDERED: SERT25TA PO (13:21)
[2020-10-29] MEDS ORDERED: PANT40TA54 PO (13:21)
[2020-10-29] MEDS ORDERED: ZIPR40CA14 PO (13:21)
[2020-10-29] MEDS ORDERED: TRAZ-251 PO (13:21)
[2020-10-29] MEDS ORDERED: PROP10TA10 PO (13:21)
--- NOTE | 2020-10-29 14:08 | NUR ---
Discharge Note: Pt discharged to her home with her biological mother. Pt denies thoughts to harm herself and commits to stay in her mother's home and continue with her medications. Pt plans to follow up with [facility]. Pt declines smoking education and smoking cessation resources. All personal belongings inventoried by DHAVAL Avila and returned with pharmacy stored medications upon her discharge.
== END 2020-10-29 14:09 | disposition home or self-care (01) | DRG 751 ==
LOC: ADULT MH 12:31
PROVIDERS: ADMIT Psychiatry & Neurology Psychiatry; ATTEND Psychiatry & Neurology Psychiatry
DX: F29 Unspecified psychosis not due to a substance or known physiological condition (principal); F12.10 Cannabis abuse, uncomplicated; F43.10 Post-traumatic stress disorder, unspecified; R00.0 Tachycardia, unspecified; K21.9 Gastro-esophageal reflux disease without esophagitis; R45.851 Suicidal ideations; F32.9 Major depressive disorder, single episode, unspecified; Z79.899 Other long term (current) drug therapy; Z81.8 Family history of other mental and behavioral disorders; Z88.2 Allergy status to sulfonamides; Z91.410 Personal history of adult physical and sexual abuse; Z88.7 Allergy status to serum and vaccine
CPT/HCPCS: 36415; 80061; 83036; 87081

== ENCOUNTER 2020-11-28 21:02 | Emergency (ER) | payer MEDICAID ==
[~2020-11-28] VITALS: Ht 157.5 cm; Wt 70.5 kg
[~2020-11-28 21:02] MED LIST changes: +LORA-268 PO; -OMEP20TA23 PO; +PANT40TA54 PO; +PROP10TA10 PO; +TRAZ-251 PO; +ZIPR40CA14 PO
[2020-11-28] MEDS ORDERED: LORazepam 2 mg/ml vial IV ONE (21:15)
[2020-11-28 21:42] LABS: BASOPHILS # (AUTO) 0.1 X10'3 (0-0.2); BASOPHILS % (AUTO) 0.7 % (0-1); EOSINOPHILS # (AUTO) 0.1 X10'3 (0-0.9); EOSINOPHILS % (AUTO) 1.1 % (0-6); HEMATOCRIT 40.3 % (35.0-45.0); HEMOGLOBIN 13.9 g/dl (12.0-16.0); LYMPHOCYTES # (AUTO) 2.5 X10'3 (1.1-4.8); LYMPHOCYTES % (AUTO) 33.6 % (21-51); MEAN CORPUSCULAR HEMOGLOBIN 31.5 PG (27.0-31.0); MEAN CORPUSCULAR HGB CONC 34.4 g/dL (33.0-36.5); MEAN CORPUSCULAR VOLUME 91.5 FL (78-98); MEAN PLATELET VOLUME 6.8 FL (7.4-10.4); MONOCYTES # (AUTO) 0.6 X10'3 (0-0.9); MONOCYTES % (AUTO) 8.1 % (2-12); NEUTROPHILS # (AUTO) 4.3 X10'3 (1.8-7.7); NEUTROPHILS % (AUTO) 56.5 % (42-75); PLATELET COUNT 290 X10'3 (140-440); RED CELL DISTRIBUTION WIDTH 12.7 % (11.5-14.5); WHITE BLOOD COUNT 7.6 X10'3 (4.5-11.0)
[2020-11-28 21:50] LABS: ALANINE AMINOTRANSFERASE 127 U/L (12-78); ALBUMIN 3.9 G/DL (3.4-5.0); ALBUMIN/GLOBULIN RATIO 1.1 (1.1-1.5); ALKALINE PHOSPHATASE 63 IU/L (46-116); ANION GAP 10 (8-16); ASPARTATE AMINO TRANSFERASE 24 U/L (10-37); BILIRUBIN,TOTAL 0.6 MG/DL (0.1-1.0); BLOOD UREA NITROGEN 13 MG/DL (7-18); BUN/CREATININE RATIO 18.8 (6.6-38.0); CALCIUM 9.2 MG/DL (8.5-10.1); CHLORIDE 103 MMOL/L (99-107); CREATININE 0.69 MG/DL (0.40-0.90); GLUCOSE 106 MG/DL (70-104); POTASSIUM 3.5 MMOL/L (3.5-5.1); SODIUM 140 MMOL/L (135-145); TOTAL CARBON DIOXIDE 27.3 MMOL/L (24-32); TOTAL PROTEIN 7.4 G/DL (6.4-8.2); eGFR > 90 ML/MIN
--- NOTE | 2020-11-28 21:50 | NUR ---
pt states she does not want to take PO ativan. informed pt that per edmd jaylan order, pt will either have the med PO or given IM. pt then agreed to take the medication. is hostile and agitated affect with staff. makes random bizarre statements and flight of ideas/tangential thinking process.
--- NOTE | 2020-11-28 21:52 | NUR ---
per edmd jaylan, may give pt ativan 1mg po instead of iv/im route that was ordered. pt agrees to this plan.
[2020-11-28 21:55] LABS: URINE HCG NEGATIVE (NEG)
[2020-11-28] MEDS ORDERED: LORazepam 1 MG tablet PO ONE (21:55)
[2020-11-28 21:58] LABS: ETHANOL < 0.010 GM/DL (0.0-0.010)
[2020-11-28 22:00] LABS: CLARITY,URINE SLIGHTLY CLOUDY (Clear); GLUCOSE, URINE NEGATIVE (Neg); KETONES,URINE NEGATIVE (Neg); LEUKOCYTE ESTERASE ,URINE TRACE (Neg); NITRITES, URINE NEGATIVE (Neg); OCCULT BLOOD,URINE NEGATIVE (Neg); PH,URINE 6.5 (4.8-8.0); PROTEIN,URINE TRACE mg/dl (Neg)
[2020-11-28 22:01] LABS: URINE AMPHETAMINE SCREEN NEGATIVE (Neg); URINE BARBITUATE SCREEN NEGATIVE (Neg); URINE BENZODIAZEPINES SCREEN NEGATIVE (Neg); URINE CANNABINOID SCREEN POSITIVE (Neg); URINE COCAINE SCREEN NEGATIVE (Neg); URINE METHADONE SCREEN NEGATIVE (Neg); URINE OPIATE SCREEN NEGATIVE (Neg); URINE PHENCYCLIDINE SCREEN NEGATIVE (Neg)
[2020-11-28] MEDS ORDERED: HYDR50CA PO (22:04)
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
[2020-11-28] MEDS ORDERED: ZIPR40CA2 PO (22:16)
[2020-11-28] MEDS ORDERED: PROP10TA10 PO (22:20)
[2020-11-28] MEDS ORDERED: SERT25TA84 PO (22:20)
[2020-11-28] MEDS ORDERED: LORA-269 PO (22:20)
[2020-11-28] MEDS ORDERED: PANT40TA54 PO (22:20)
[2020-11-28] MEDS ORDERED: TRAZ-251 PO (22:20)
[2020-11-28 22:25] LABS: COLOR,URINE DARK YELLOW (Yellow); UA COLLECTION TYPE CLN CATCH MIDSTREAM
[2020-11-28] MEDS ORDERED: OLANZapine **IM** 10 mg inj. IM ONE (22:25)
[2020-11-28 22:27] LABS: BACTERIA,URINE 1+ /HPF (Neg); MUCUS STRANDS MANY /LPF (Neg); RBC,URINE NONE SEEN /HPF (0-2); SQUAMOUS EPITHELIAL CELL,UR FEW /LPF (FEW); WBC,URINE 0-4 /HPF (0-4)
--- NOTE | 2020-11-28 22:33 | NUR ---
called to bedside for medication administration due to pt stating she will not take any more meds and will refuse. states she will not lay on bed for the zyprexa IM injection and will not allow this nurse to provide her medication care. when stepped in for hold on pt for med administration, pt laid down on bed and allowed this rn to administer medication without aggression or hold/restraint needed.
--- NOTE | 2020-11-28 23:00 | NUR ---
attempted to call pt mother Jennie. no answer and voice mailbox is full. will continue to attempt contacting pt family per pt request
--- NOTE | 2020-11-28 23:50 | NUR ---
pt appears to be resting peacefully with eyes closed. no s/s acute distress at this time. respirations even and unlabored
--- NOTE | 2020-11-29 01:17 | NUR ---
pt sleeping peacfully in bed supine . Resp even and unlabored . pt in the direct line of sight of nursing staff . will continue to monitor and reassess as needed
--- NOTE | 2020-11-29 02:52 | NUR ---
pt appears to be resting peacefully with eyes closed in bed supine. Respirations even and unlabored with no s/s acute distress at this time. pt in the direct line of sight of nursing staff.
--- NOTE | 2020-11-29 06:30 | NUR ---
patient asleep at this time.
--- NOTE | 2020-11-29 07:57 | NUR ---
Patient remains asleep,on left side,respirations regular.sitter in front of patient's room.We will monitor.
--- NOTE | 2020-11-29 08:48 | NUR ---
Sathya/Mental Health SW at bedside.
--- NOTE | 2020-11-29 09:20 | NUR ---
Patient reports she is suicidal everyday and overdosed herself daily in the past month,"my biological mother is the michael of [facility]",also reports auditory hallucinations telling her to overdose herself.Remains calm and cooperative at this time,no reported pain at this time.pt has a sitter.We will monitor.
[2020-11-29] MEDS ORDERED: OLANZapine **IM** 10 mg inj. IM ONE (09:35)
[2020-11-29] MEDS ORDERED: LORazepam 1 MG tablet PO ONE (09:35)
[2020-11-29] MEDS ORDERED: LORazepam 2 mg/ml vial IM ONE (09:40)
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
--- NOTE | 2020-11-29 10:02 | NUR ---
PT AWAKE LAYING IN BED NO NEEDS AT THIS TIME. PT IS CALM AND NO LONGER YELLING OUT
--- NOTE | 2020-11-29 10:21 | NUR ---
sbar called to Abr[facility] CHANEY,patient able to ambulate self with steady gait,sba by calciner feeder,pt to bed 23 Overflow.
--- NOTE | 2020-11-29 10:53 | NUR ---
PT RESTING CALMLY ON HER BED
[2020-11-29] MEDS ORDERED: traZODone 50mg tablet PO PRN (11:25)
[2020-11-29] MEDS ORDERED: LORazepam 1 MG tablet PO PRN (11:25)
--- NOTE | 2020-11-29 11:45 | NUR ---
pt is sleeping at this time, resp rate wnl
--- NOTE | 2020-11-29 12:30 | NUR ---
pt remains asleep, calm
[2020-11-29] MEDS: hydrOXYzine 25 MG tablet PO SCH ×3 (13:01→20:05)
[2020-11-29] MEDS: pantoprazole 40mg Tablet.DR PO SCH (13:01)
[2020-11-29] MEDS: propranolol 10mg tablet PO SCH ×2 (13:01→20:05)
[2020-11-29] MEDS: ziprasidone 20mg capsule PO SCH ×2 (13:01→20:05)
[2020-11-29] MEDS: sertraline 25mg tablet PO SCH (13:02)
--- NOTE | 2020-11-29 13:14 | NUR ---
pt awakened for lunch and her medications, was very calm and polite with nurse
--- NOTE | 2020-11-29 13:42 | NUR ---
pt asked to use phone, calling her "biological mother"
--- NOTE | 2020-11-29 14:22 | NUR ---
Dave from [facility] called to inquire about patient, pt to possibly be accepted there, awaiting covid swab result. Pt resting on her bed, calm, no change
--- NOTE | 2020-11-29 15:08 | NUR ---
PT RESTING QUIETLY IN BED, RESP RATE 16
--- NOTE | 2020-11-29 16:00 | NUR ---
pt appears to be sleeping, no change
--- NOTE | 2020-11-29 17:00 | NUR ---
pt remains asleep, no change
--- NOTE | 2020-11-29 17:32 | NUR ---
Report given to [facility] staff member, stated they would continue to look over pt's packet for possible acceptance at that facility
--- NOTE | 2020-11-29 18:14 | NUR ---
The patient up to use the bathroom and is now sitting up and eating her dinner.
--- NOTE | 2020-11-29 19:00 | NUR ---
The patient is quiet and cooperative when approached for the evening assessment. She is making comments that she does not trust her family. She has a poor understanding of her current medications and medication education provided. She denies voices but does have paranoid thoughts. She currently denies that she is suicidal.
--- NOTE | 2020-11-29 20:31 | NUR ---
The patient took her evening medications without incident. She also had an HS snack.
--- NOTE | 2020-11-29 21:00 | NUR ---
The patient apppears to be sleeping
--- NOTE | 2020-11-29 22:46 | NUR ---
The patient appears to be sleeping
--- NOTE | 2020-11-30 | NUR ---
The patient appears to be sleeping
--- NOTE | 2020-11-30 02:31 | NUR ---
The patient appears to be sleeping
--- NOTE | 2020-11-30 03:44 | NUR ---
The patient appears to be sleeping
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
[2020-11-30 05:13] VITALS: BP 95/47
[2020-11-30] MEDS: propranolol 10mg tablet PO SCH ×2 (07:51→12:52)
[2020-11-30] MEDS: sertraline 25mg tablet PO SCH (08:30)
[2020-11-30] MEDS: hydrOXYzine 25 MG tablet PO SCH ×3 (08:30→17:01)
[2020-11-30] MEDS: pantoprazole 40mg Tablet.DR PO SCH (08:30)
[2020-11-30] MEDS: ziprasidone 20mg capsule PO SCH (08:30)
--- NOTE | 2020-11-30 09:56 | NUR ---
CALL TO HI [facility]EL[facility] OFFICE FOR UPDATE, [facility] WILL BE REVIEWING HER PACKET AGAIN TODAY
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
--- NOTE | 2020-11-30 12:03 | NUR ---
Manuel from [place] called for a nurse to nurse report. Manuel is working with [facility] to seek possible placement of pt.
--- NOTE | 2020-11-30 15:06 | NUR ---
Luz from [facility] called and notified RN pt has been accepted by Gaston [facility] by Dr. Doherty @ 12:45. [phone]. Pt will be picked up by [facility] transportaion at 16:30.
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
== END 2020-11-30 18:19 ==
LOC: ER 21:03
DX: R45.851 Suicidal ideations (principal); Z20.822 Contact with and (suspected) exposure to COVID-19; R10.9 Unspecified abdominal pain; F43.10 Post-traumatic stress disorder, unspecified; F29 Unspecified psychosis not due to a substance or known physiological condition; F30.9 Manic episode, unspecified; Z88.2 Allergy status to sulfonamides; Z88.7 Allergy status to serum and vaccine; Z91.048 Other nonmedicinal substance allergy status; Z79.899 Other long term (current) drug therapy
CPT/HCPCS: 36415; 80053; 80305; 80320; 81001; 81025; 84443; 85025; 87635; 96372; 99285; C9803; J2060; J3490; Q0177